=== PATIENT | female | born 1955 | race Caucasian/White ===

== ENCOUNTER 2022-05-12 09:31 | Outpatient (CLI) | payer OTHER, SELFPAY ==
[2022-05-12 11:37] LABS: Albumin* 4.9 g/dL (3.3-5.0); Chloride* 101 mmol/L (96-114)
[2022-05-12 11:38] LABS: Potassium* 4.2 mmol/L (3.6-5.1); Sodium* 141 mmol/L (135-149)
[2022-05-12 11:40] LABS: Aspartate Amino Transferase* 27 U/L (12-35); Bilirubin Total* 0.6 mg/dL (0.1-1.5); Carbon Dioxide* 27 mmol/L (20-32); Creatinine* 1.2 mg/dL (0.5-1.5); Estimated Glomerular Filt Rate 50 ml/min; Total Protein* 7.5 g/dL (6.0-8.3)
[2022-05-12 11:41] LABS: Alanine Aminotransferase* 15 U/L (4-35); Alkaline Phosphatase* 75 U/L (40-150); Blood Urea Nitrogen* 20 mg/dL (7-30); Calcium* 9.8 mg/dL (8.4-10.6); Glucose* 94 mg/dL (60-115)
[2022-05-12 11:53] LABS: Creatinine Urine 289.7 mg/dL
[2022-05-12 11:56] LABS: Microalbumin Creatinine Ratio 20 mg/g (0-30); Microalbumin Urine 7 mg/dL
== END 2022-05-12 09:32 | disposition home or self-care (01) ==
PROVIDERS: PCP Family Medicine; Visit Provider Family Medicine
DX: E11.9 Type 2 diabetes mellitus without complications (principal); K74.60 Unspecified cirrhosis of liver; F41.9 Anxiety disorder, unspecified; E21.3 Hyperparathyroidism, unspecified; N18.9 Chronic kidney disease, unspecified
CPT/HCPCS: 80053; 82043; 82570

== ENCOUNTER 2023-01-08 10:40 | Outpatient (CLI) | payer OTHER, SELFPAY | END 2023-01-08 10:41 | disposition home or self-care (01) | LOC: NFLDREF 10:42 | PROVIDERS: PCP Family Medicine; Visit Provider Family Medicine | DX: Z01.818 Encounter for other preprocedural examination (principal); D69.6 Thrombocytopenia, unspecified; R03.0 Elevated blood-pressure reading, without diagnosis of hypertension; E11.9 Type 2 diabetes mellitus without complications; E83.52 Hypercalcemia | CPT/HCPCS: 80048 ==

== ENCOUNTER 2023-01-20 07:58 | Outpatient (CLI) | payer OTHER, SELFPAY ==
--- NOTE | 2023-01-20 09:24 | W.ANESCHARGE ---
Anesthesia Charges Start Date/Time Anesthesia Start Date: 01/20/23 Anesthesia Start Time: 09:17 Stop Date/Time Anesthesia Stop Date: 01/20/23 Anesthesia Stop Time: 09:48
--- NOTE | 2023-01-20 09:53 | W.ANESCHARGE ---
Anesthesia Charges Start Date/Time Anesthesia Start Date: 01/20/23 Anesthesia Start Time: 09:17 Stop Date/Time Anesthesia Stop Date: 01/20/23 Anesthesia Stop Time: 09:48
== END 2023-01-20 07:59 | disposition home or self-care (01) ==
LOC: OP CLINIC 08:00
PROVIDERS: PCP Family Medicine; Visit Provider Surgery
DX: Z12.11 Encounter for screening for malignant neoplasm of colon (principal); Z86.010 Personal history of colon polyps
CPT/HCPCS: 00811; 00812; 45378

== ENCOUNTER 2024-02-26 09:18 | Outpatient (CLI) | payer OTHER, SELFPAY ==
--- OUTSIDE RECORDS SUMMARY | 2024-03-01 20:59 | XMS_ITS | Clinical Summary ---
Author Organization [employer] [facility] Address [place], [place] [address] Care Team Providers Care Set Designer Name Role Phone Leona Albert MD Primary Care Provider + Allergies No known active allergies Medications Medication Sig Dispensed Refills Start Date End Date Status blood-glucose meter Dispense glucose meter, test strips and lancets covered by the patient insurance. Test 4 times per day. 1 Device 0 08/30/2012 Active nadolol (CORGARD) 20 mg tablet Take 0.5 tablets by mouth at bedtime. 62 tablet 1 08/31/2012 Active gabapentin (NEURONTIN) 600 mg tabletIndications:n europathic pain Take 1 tablet by mouth 2 times daily. Indications: NEUROPATHIC PAIN 60 tablet 0 08/31/2012 Active furosemide (LASIX) 40 mg tablet Take 1 tablet by mouth 2 times daily. 60 tablet 0 08/31/2012 Active metFORMIN (GLUCOPHAGE) 1,000 mg tablet Take 1 Tablet by mouth 2 times daily with meals. 02/05/2022 Active sertraline (ZOLOFT) 100 mg tablet Take 150 mg by mouth once daily. 02/05/2022 Active Active Problems Problem Noted Date Diagnosed Date Gastric ulcer 08/31/2012 Esophageal varices 08/31/2012 Urinary retention 08/26/2012 Acute blood loss anemia 08/25/2012 Coagulopathy 08/24/2012 Fx ankle 08/23/2012 Diabetes mellitus type II 08/23/2012 Overview: a system change updated this record. This will not affect patient care or billing. This comment can be deleted. Hyponatremia 08/23/2012 Cirrhosis, alcoholic 08/23/2012 CKD (chronic kidney disease) 08/23/2012 Microcytic anemia 08/23/2012 Metabolic acidosis 08/23/2012 Immunizations Name Administration Dates Next Due Influenza, IIV3 (Age >=3 years) 08/27/2012 Social History Tobacco Use Types Packs/Day Years Used Date Smoking Tobacco: Former Cigarettes Q uit: 10/05/1988 Smokeless Tobacco: Never Tobacco Cessation:Counseling Given: Yes Alcohol Use Standard Drinks/Week Comments No 0 (1 standard drink = 0.6 oz pur e alcohol) Sex and Gender Information Value Date Recorded Sex Assigned at Not on file Gender Identity Not on file Sexual Orientation Not on file Obstetrics History Last Filed Vital Signs Vital Sign Reading Time Taken Comments Blood Pressure 147/79 03/04/2022 2:41 PM CDT tow er Pulse 94 03/04/2022 2:41 PM CDT Temperature 36.8 ??C (98.3 ??F) 08/31/2012 1 2:50 PM CERTIFIED INCOME TAX PREPARER Respiratory Rate 16 08/31/2012 12:5 0 PM CERTIFIED INCOME TAX PREPARER Oxygen Saturation 98% 03/04/2022 2:41 PM CDT Inhaled Oxygen Concentration - - Weight 64.3 kg (141 lb 12.8 oz) 03/04/2022 2:41 PM CDT Height 167.6 cm (5' 6) 08/23/2012 8:38 PM CERTIFIED INCOME TAX PREPARER Body Mass Index 22.89 08/23/2012 8:38 PM CERTIFIED INCOME TAX PREPARER Plan of Treatment Health Maintenance Due Date Last Done Comments Tdap 12/21/1967 Depression screening for age 12+ 1968 BMI (ht and wt on same day) for age 18+ 1974 Hepatitis C screening for age 18-79 1974 Tetanus booster 1976 Colonoscopy through age 75 2001 Lipids for age 45-75 2001 Mammogram for age 45-75 2001 Zoster (shingles) series for age 50+ (1 of 2) 2006 DEXA/DXA scan for age 65+ 2021 Medicare Wellness for age 65+ 2021 Pneumococcal series for age 65+ (1 of 1 - PCV) 2021 COVID-19 vaccine series (3 - 2022-24 season) 2023 01/18/2021, 12/21/2020 Influenza for age 65+ 06/05/2024 08/27/2012 Medical Devices Implanted Type Area Stock Worker And Deliverer Device Identifier Shelf Expiration Date Model / Serial / Lot Plate Lcp 81mm 7 Holes One-Third Tubular W/Collar - [id number] Implanted:Qty : 1 on 08/24/2012 by Dimas Rudolph MD at [facility] Ortho Imp.,Screw s & Plates Right: Ankle Depuy Synthes [employer] 241.371# / / Description:Load# [id number] Screw Lock 3.3fbp13ho Stardrive - [id number] Implanted:Qty : 1 on 08/24/2012 by Dimas Rudolph MD at [facility] Ortho Imp.,Screw s & Plates Right: Ankle Depuy Synthes [employer] 212.104# / / Description:Load# [id number] Screw Lock 3.3hzc72qk Stardrive - [id number] Implanted:Qty : 1 on 08/24/2012 by Dimas Rudolph MD at [facility] Ortho Imp.,Screw s & Plates Right: Ankle Depuy Synthes [employer] 212.103# / / Description:Load#[id number] Screw Cortex 2.7x24mm Sm 824 Hex Socket 202.824 Synthe - [id number] Implanted:Qty : 1 on 08/24/2012 by Dimas Rudolph MD at [facility] Ortho Imp.,Screw s & Plates Right: Ankle Depuy Synthes [employer] 202.824# / / Description:Load#[id number] Screw Cortex 2.7x22mm Sm 822 Hex Socket - [id number] Implanted:Qty : 1 on 08/24/2012 by Dimas Rudolph MD at [facility] Ortho Imp.,Screw s & Plates Right: Ankle Depuy Synthes [employer] 202.822# / / Description:Load#[id number] Screw Canclls 4.3z82br932.0 50 Synthes - [id number] Implanted:Qty : 1 on 08/24/2012 by Dimas Rudolph MD at [facility] Ortho Imp.,Screw s & Plates Right: Ankle Depuy Synthes [employer] 207.050# / / Description:Load#[id number] Screw Lock 3.0wnu39tr Self-Tapping W/Stardrive Recess - [id number] Implanted:Qty : 2 on 08/24/2012 by Dimas Rudolph MD at [facility] Right: Ankle Depuy [employer] 212.106# / / Description:Load# [id number] Screw Canclls 4.0x20mm Full Thread 206.020 Synt - [id number] Implanted:Qty : 1 on 08/24/2012 by Dimas Rudolph MD at [facility] Right: Ankle Depuy [employer] 206.020# / / Description:Load# [id number] Explanted Type Area Stock Worker And Deliverer Device Identifier Shelf Expiration Date Model / Serial / Lot Wire Kirs 2.6k996tt [employer] [employer] 292.20 Synthes - [id number] Explanted:Qty: 1 on 08/24/2012 by Dimas Rudolph MD at [facility] Right: Ankle Depuy [employer] 292.20# / / Description:Load#[id number] Wire Kirs 1.0s352yg [place] - [id number] Explanted:Qty: 2 on 08/24/2012 by Dimas Rudolph MD at [facility] Right: Ankle DepStatSocial 292.71# / / Description:Load#[id number] Advance Directives * Full Code (Latest Code Status on File) Date Activated Date Inactivated Comments 08/24/2012 12:00 PM 08/31/2012 5:03 PM * Full Code Date Activated Date Inactivated Comments 08/23/2012 9:05 PM 08/24/2012 12:00 PM Care Teams Set Designer Relationship Specialty Start Date End Date Leona Albert MD [address] [place] [address] PCP - General Family Practice 03/04/22
== END 2024-02-26 09:19 | disposition home or self-care (01) ==
LOC: NFLDREF 03-01 20:57
PROVIDERS: PCP Family Medicine; Referring Provider Family Medicine; Visit Provider Family Medicine
DX: E11.9 Type 2 diabetes mellitus without complications (principal); K70.30 Alcoholic cirrhosis of liver without ascites; E78.5 Hyperlipidemia, unspecified; M85.80 Other specified disorders of bone density and structure, unspecified site
CPT/HCPCS: 80053; 80061; 82043; 82306; 82570

== ENCOUNTER 2024-03-16 07:30 | Outpatient (CLI) | payer OTHER, SELFPAY ==
--- OUTSIDE RECORDS SUMMARY | 2024-03-16 07:33 | XMS_ITS | Clinical Summary ---
Author Organization [employer] [facility] Address [place], [place] [address] Care Team Providers Care Double Head Machine Operator Name Role Phone Leona Albert MD Primary [...] ??C (98.3 ??F) 08/31/2012 1 2:50 PM QUALITY CONTROL Respiratory Rate 16 08/31/2012 12:5 0 PM QUALITY CONTROL Oxygen Saturation 98% 03/04/2022 2:41 PM CDT Inhaled Oxygen Concentration - - Weight 64.3 kg (141 lb 12.8 oz) 03/04/2022 2:41 PM CDT Height 167.6 cm (5' 6) 08/23/2012 8:38 PM QUALITY CONTROL Body Mass Index 22.89 08/23/2012 8:38 PM QUALITY CONTROL Plan of Treatment Health Maintenance Due Date [...] 06/05/2024 08/27/2012 Medical Devices Implanted Type Area Crisis Clinician Device Identifier Shelf Expiration Date Model / Serial / Lot Plate Lcp 81mm 7 Holes One-Third Tubular W/Collar - [id number] Implanted:Qty : 1 on 08/24/2012 by Dimas Rudolph MD at [facility] Ortho Imp.,Screw s & Plates Right: Ankle Depuy Synthes [employer] 241.371# / / Description:Load# [id number] Screw Lock 3.7dob63jx Stardrive - [id number] Implanted:Qty : 1 on 08/24/2012 by Dimas Rudolph MD at [facility] Ortho Imp.,Screw s & Plates Right: Ankle Depuy Synthes [employer] 212.104# / / Description:Load# [id number] Screw Lock 3.6lgp27he Stardrive - [id number] Implanted:Qty : 1 on 08/24/2012 by Dimas Rudolph MD at [facility] Ortho Imp.,Screw s & Plates Right: Ankle Depuy Synthes [employer] 212.103# / / Description:Load#[id number] Screw Cortex 2.7x24mm Sm 824 Hex Socket 202.824 Synthe - [id number] Implanted:Qty : 1 on 08/24/2012 by Dimas Rudolph MD at [facility] Ortho Imp.,Screw s & Plates Right: Ankle Depuy Synthes [employer] 202.824# / / Description:Load#[id number] Screw Cortex 2.7x22mm Sm 822 Hex Socket - [id number] Implanted:Qty : 1 on 08/24/2012 by Dimas Rudolph MD at [facility] Ortho Imp.,Screw s & Plates Right: Ankle Depuy Synthes [employer] 202.822# / / Description:Load#[id number] Screw Canclls 4.6l06as091.0 50 Synthes - [id number] Implanted:Qty : 1 on 08/24/2012 by Dimas Rudolph MD at [facility] Ortho Imp.,Screw s & Plates Right: Ankle Depuy Synthes [employer] 207.050# / / Description:Load#[id number] Screw Lock 3.8erd42he Self-Tapping W/Stardrive Recess - [id number] Implanted:Qty : 2 on 08/24/2012 by Dimas Rudolph MD at [facility] Right: Ankle Depuy [employer] 212.106# / / Description:Load# [id number] Screw Canclls 4.0x20mm Full Thread 206.020 Synt - [id number] Implanted:Qty : 1 on 08/24/2012 by Dimas Rudolph MD at [facility] Right: Ankle Depuy [employer] 206.020# / / Description:Load# [id number] Explanted Type Area Crisis Clinician Device Identifier Shelf Expiration Date Model / Serial / Lot Wire Kirs 2.7v363oz [place] 292.20 Synthes - [id number] Explanted:Qty: 1 on 08/24/2012 by Dimas Rudolph MD at [facility] Right: Ankle Depuy [employer] 292.20# / / Description:Load#[id number] Wire Kirs 1.2a549xa [place] - [id number] Explanted:Qty: 2 on 08/24/2012 by Dimas Rudolph MD at [facility] Right: Ankle DepTalenta 292.71# / / Description:Load#[id number] Advance Directives * Full Code (Latest Code Status on File) Date Activated Date Inactivated Comments 08/24/2012 12:00 PM 08/31/2012 5:03 PM * Full Code Date Activated Date Inactivated Comments 08/23/2012 9:05 PM 08/24/2012 12:00 PM Care Teams Double Head Machine Operator Relationship Specialty Start Date End Date Leona Albert MD [address] [place], [place] [phone] PCP - General Family Practice 5/31/22
--- NOTE | 2024-03-16 07:45 | CRLHL7_ITS ---
For Patients: As a result of the Cures Act, medical imaging exams and procedure reports are released immediately into your electronic medical record. You may view this report before your referring provider. If you have questions, please contact your health care provider. INDICATION: Alcoholic cirrhosis. FINDINGS: Abdominal ultrasound shows diffuse nodularity of the liver representing cirrhosis. No suspicious focal liver lesions identified. No bile duct dilation with the common bile duct measuring 3 mm. Normal appearance of the gallbladder. No gallstones. No abnormalities identified in the visualized portions of the pancreatic head and body, aorta, IVC, and right kidney. No right-sided hydronephrosis. Impression : 1. Cirrhosis. No suspicious liver lesions identified. 2. No bile duct dilation. No gallstones. Dictated by Steve Hernandez MD @ 03/17/2024 9:03:47 AM (Electronically Signed)
== END 2024-03-16 07:31 | disposition home or self-care (01) ==
LOC: US 07:31
PROVIDERS: PCP Family Medicine; Visit Provider Family Medicine
DX: K70.30 Alcoholic cirrhosis of liver without ascites (principal)
CPT/HCPCS: 76705

== ENCOUNTER 2024-05-26 14:20 | Outpatient (CLI) | payer OTHER, SELFPAY ==
--- OUTSIDE RECORDS SUMMARY | 2024-05-26 14:23 | XMS_ITS | Clinical Summary ---
Author Organization [employer] [facility] Address [place], [place] [address] Care Team Providers Care Phd Internship Name Role Phone Leona Albert MD Primary [...] ??C (98.3 ??F) 08/31/2012 1 2:50 PM HOUSEMAID Respiratory Rate 16 08/31/2012 12:5 0 PM HOUSEMAID Oxygen Saturation 98% 03/04/2022 2:41 PM CDT Inhaled Oxygen Concentration - - Weight 64.3 kg (141 lb 12.8 oz) 03/04/2022 2:41 PM CDT Height 167.6 cm (5' 6) 08/23/2012 8:38 PM HOUSEMAID Body Mass Index 22.89 08/23/2012 8:38 PM HOUSEMAID Plan of Treatment Health Maintenance Due Date [...] 06/05/2024 08/27/2012 Medical Devices Implanted Type Area Liquid Hydrogen Plant Operator Device Identifier Shelf Expiration Date Model / Serial / Lot Plate Lcp 81mm 7 Holes One-Third Tubular W/Collar - [id number] Implanted:Qty : 1 on 08/24/2012 by Dimas Rudolph MD at [facility] Ortho Imp.,Screw s & Plates Right: Ankle Depuy Synthes [employer] 241.371# / / Description:Load# [id number] Screw Lock 3.5dpg01ue Stardrive - [id number] Implanted:Qty : 1 on 08/24/2012 by Dimas Rudolph MD at [facility] Ortho Imp.,Screw s & Plates Right: Ankle Depuy Synthes [employer] 212.104# / / Description:Load# [id number] Screw Lock 3.0nha58vv Stardrive - [id number] Implanted:Qty : 1 on 08/24/2012 by Dimas Rudolph MD at [facility] Ortho Imp.,Screw s & Plates Right: Ankle Depuy Synthes [employer] 212.103# / / Description:Load#[id number] Screw Cortex 2.7x24mm Sm 824 Hex Socket 202.824 Synthe - [id number] Implanted:Qty : 1 on 08/24/2012 by Dimas Rudolph MD at [facility] Ortho Imp.,Screw s & Plates Right: Ankle Depuy Synthes [employer] 202.824# / / Description:Load#[id number] Screw Cortex 2.7x22mm Sm 822 Hex Socket - [id number] Implanted:Qty : 1 on 08/24/2012 by Dimas Rudolph MD at [facility] Ortho Imp.,Screw s & Plates Right: Ankle Depuy Synthes [employer] 202.822# / / Description:Load#[id number] Screw Canclls 4.3x85oq243.0 50 Synthes - [id number] Implanted:Qty : 1 on 08/24/2012 by Dimas Rudolph MD at [facility] Ortho Imp.,Screw s & Plates Right: Ankle Depuy Synthes [employer] 207.050# / / Description:Load#[id number] Screw Lock 3.7pbp18ib Self-Tapping W/Stardrive Recess - [id number] Implanted:Qty : 2 on 08/24/2012 by Dimas Rudolph MD at [facility] Right: Ankle Depuy [employer] 212.106# / / Description:Load# [id number] Screw Canclls 4.0x20mm Full Thread 206.020 Synt - [id number] Implanted:Qty : 1 on 08/24/2012 by Dimas Rudolph MD at [facility] Right: Ankle Depuy [employer] 206.020# / / Description:Load# [id number] Explanted Type Area Liquid Hydrogen Plant Operator Device Identifier Shelf Expiration Date Model / Serial / Lot Wire Kirs 2.0r657cw [place] 292.20 Synthes - [id number] Explanted:Qty: 1 on 08/24/2012 by Dimas Rudolph MD at [facility] Right: Ankle Depuy [employer] 292.20# / / Description:Load#[id number] Wire Kirs 1.4b614rm [place] - [id number] Explanted:Qty: 2 on 08/24/2012 by Dimas Rudolph MD at [facility] Right: Ankle [employer]Weight [employer] 292.71# / / Description:Load#[id number] Advance Directives * Full Code (Latest Code Status on File) Date Activated Date Inactivated Comments 08/24/2012 12:00 PM 08/31/2012 5:03 PM * Full Code Date Activated Date Inactivated Comments 08/23/2012 9:05 PM 08/24/2012 12:00 PM Care Teams Phd Internship Relationship Specialty Start Date End Date Leona Albert MD [address] [place], [place] [phone] PCP - General Family Practice 5/31/22
--- NOTE | 2024-05-26 14:40 | CRLHL7_ITS ---
For Patients: As a result of the Century Cures Act, medical imaging exams and procedure reports are released immediately into your electronic medical record. You may view this report before your referring provider. If you have questions, please contact your health care provider. BILATERAL SCREENING MAMMOGRAM WITH COMPUTER-AIDED DETECTION AND TOMOSYNTHESIS TECHNIQUE: CC and MLO views were obtained. These mammographic images have been obtained using full-field digital technique. These mammographic images were interpreted with the benefit of computer-aided detection. Breast Tomosynthesis was used in this interpretation. COMPARISON FILM: 05/14/21, 05/06/18, 04/23/17. FINDINGS: The breasts are extremely dense, which lowers the sensitivity of mammography IMPRESSION: There is no radiographic evidence for malignancy. ASSESSMENT: BI-RADS Category 2: Benign RECOMMENDATION: Routine screening mammogram in 1 year. A lay language report of this examination will be provided to the patient. Agustin Carmen M.D. Diagnostic Radiologist [email or web address] EVA/Dictated by: Agustin Carmen MD @ 05/27/2024 9:28:00 AM (Electronically Signed)
--- NOTE | 2024-05-26 15:00 | CRLHL7_ITS ---
For Patients: As a result of the Century Cures Act, medical imaging exams and procedure reports are released immediately into your electronic medical record. You may view this report before your referring provider. If you have questions, please contact your health care provider. DXA BONE MINERAL DENSITY STUDY Current height (in): 66.0. Weight (lb): 131.0. Menopause age: 54. Ethnicity: White. Reason for exam: Osteopenia. 1. Have you had a previous hip or vertebral fracture? No. 2. Have you had any fractures during your adult life which did not result from significant trauma (e.g., auto accident)? No. 3. Did either of your parents have a hip fracture? No. 4. Do you smoke? No. 5. Have you ever taken Glucocorticoids? No. 6. Do you have rheumatoid arthritis? No. 7. Do you have secondary osteoporosis? No. 8. Do you drink 3 or more alcoholic drinks per day? No. 9. Are you being treated for osteoporosis? No. 10. Have you ever taken any of the following medications: Actonel, Evista, Fosamax, Miacalcin, Reclast, Boniva, Forteo, HRT (i.e. estrogen/hormone therapy), Protelos, Prolia, Vitamin D, Calcium, other ??? please specify. ANSWER: Yes, calcium. 11. Do you have any of the following medical conditions: Anorexia or bulimia, asthma or emphysema, end stage renal disease, hyperparathyroidism, any seizure disorders, cancer, inflammatory bowel diseases, hysterectomy, other ??? please specify. ANSWER: No. 12. What was your maximum height (inches)? 66. 13. Do you perform weight bearing exercise regularly? No. 14. Do you regularly consume dairy products? Yes. 15. Do you drink caffeinated beverages? Yes. 16. At what age did your period start? 14. 17. Are you premenopausal? No. 18. How many full-term pregnancies have you had? 1. 19. Have you ever missed your period for more than 6 months in a row (not including or menopause)? No. TECHNIQUE: Bone mineral density study was performed using the [facility]. FINDINGS: The results of the study expressed as bone mineral density (BMD) are as follows: Lumbar spine L1 to L3: BMD: 1.192 g/cm2. T-score: 1.6. Z-score: 3.5 Neck Left: BMD: 0.677 g/cm2. T-score: -1.6. Z-score: 0.1 Right: BMD: 0.647 g/cm2. T-score: -1.8. Z-score: -0.2 Total Left: BMD: 0.787 g/cm2. T-score: -1.3. Z-score: 0.1 Right: BMD: 0.791 g/cm2. T-score: -1.2. Z-score: 0.1 IMPRESSION: Osteopenia. *Comparison exams done prior to 03/2020 were performed on different unit, Triptrotting. COMPARISON: Compared with scan of 02/13/2022, the bone mineral density has increased by 1.0 percent at the spine and decreased by 4.1 percent at the hip. FRAX 10-year Fracture Risk Major Osteoporotic Fracture: 9.5 percent Hip Fracture: 1.5 percent Reported Risk Factors: [place] () Neck BMD = 0.647, BMI = 21.1 Agustin Carmen M.D. Diagnostic Radiologist [email or web address] Transcribed: 2:33 pm DW/Dictated by: Agustin Carmen MD @ 05/27/2024 1:22:00 PM (Electronically Signed)
== END 2024-05-26 14:21 | disposition home or self-care (01) ==
LOC: MAMMO 14:21
PROVIDERS: PCP Family Medicine; Visit Provider Radiology Diagnostic Radiology
DX: Z12.31 Encounter for screening mammogram for malignant neoplasm of breast (principal); M85.851 Other specified disorders of bone density and structure, right thigh; M85.89 Other specified disorders of bone density and structure, multiple sites
CPT/HCPCS: 77063; 77067; 77080